=== PATIENT | female | born 1960 | race Caucasian/White ===

== ENCOUNTER 2023-07-15 05:00 | Observation (INO) | payer OTHER ==
[2023-07-15] VITALS (9 sets, daily range): BP systolic 109–173; BP diastolic 47–82; PULSE 67–84; RESP 14–73; TEMP 96.9–98; O2SAT 96–97
[~2023-07-15] VITALS: Ht 154.9 cm; Wt 72.6 kg
[2023-07-15 06:58] LABS: BASOPHILS % (AUTO) 0.6 % (0.0-2.0); EOSINOPHILS % (AUTO) 0.5 % (0.0-4.0); HEMATOCRIT 42.9 % (36-48); HEMOGLOBIN 14.6 g/dL (12.0-16.0); LYMPHOCYTES # (AUTO) 1.5 K/uL (2.5-16.5); LYMPHOCYTES % (AUTO) 18.3 % (20.5-51.1); MEAN CORPUSCULAR HEMOGLOBIN 31 pg (27-31); MEAN CORPUSCULAR HGB CONC 34 g/dL (33-37); MEAN CORPUSCULAR VOLUME 89.6 fL (80-94); MONOCYTES # (AUTO) 0.4 K/uL (0.8-1.0); MONOCYTES % (AUTO) 5.2 % (1.7-9.3); NEUTROPHILS # (AUTO) 6.1 K/uL (1.8-7.7); NEUTROPHILS % (AUTO) 75.4 % (42.2-75.2); PLATELET COUNT (AUTO) 308 K/uL (140-450); RED BLOOD CELL COUNT(AUTO) 4.78 MIL/uL (4.20-5.40); RED CELL DISTRIBUTION WIDTH 13.2 % (11.6-13.7); WHITE BLOOD COUNT (AUTO) 8.1 K/uL (4.8-10.8)
[2023-07-15] MEDS ORDERED: ASPIRIN 81 MG TAB.CHEW PO ONE (07:35)
[2023-07-15 07:53] LABS: ANION GAP 11.3 (8-16); CALCIUM 8.8 mg/dL (8.5-10.1); CARBON DIOXIDE 26.8 mmol/L (21-32); CREATININE 0.6 mg/dL (0.6-1.3); POTASSIUM 4.1 mmol/L (3.5-5.1)
[2023-07-15] MEDS ORDERED: MAG SULF 2000 MG/WATER PREMIX 50 ML IV PRN (08:20)
[2023-07-15] MEDS ORDERED: MAGNESIUM OXIDE 400 MG TAB PO PRN (08:20)
[2023-07-15] MEDS ORDERED: POTASSIUM CHLORIDE 10 MEQ TABER PO PRN (08:20)
[2023-07-15] MEDS ORDERED: KCL 20 MEQ IN 100 mL PREMIX 200 ML IV PRN (08:20)
[2023-07-15] MEDS ORDERED: ACETAMINOPHEN 325 MG TAB PO PRN (08:20)
[2023-07-15] MEDS ORDERED: ONDANSETRON 4 MG/2 ML VIAL IVP PRN (08:20)
[2023-07-15] MEDS ORDERED: MORPHINE SULFATE 2 MG/ML SYR IVP PRN (08:20)
[2023-07-15] MEDS ORDERED: HYDROcodone/APAP 5/325 MG 1 TAB TAB PO PRN (08:20)
[2023-07-15 08:25] LABS: INR 0.98 (0.8-1.2); PARTIAL THROMBOPLASTIN TIME 26.8 secs (22-35.6); PROTHROMBIN TIME 10.3 secs (10.8-13.4)
[2023-07-15 08:27] LABS: ALBUMIN 3.4 g/dL (3.4-5.0); BILIRUBIN,DIRECT 0.1 mg/dL (0.0-0.3); TOTAL BILIRUBIN 0.5 mg/dL (0.0-1.0); TOTAL PROTEIN, SERUM 7.8 g/dL (6.4-8.2)
[2023-07-15] MEDS ORDERED: METF-352 PO (08:48)
[2023-07-15] MEDS ORDERED: INSU100I7 SUBQ (08:48)
[2023-07-15] MEDS ORDERED: BENA10TA81 PO (08:48)
[2023-07-15] MEDS ORDERED: SIMV-30 PO (08:48)
[2023-07-15] MEDS ORDERED: ENAL20TA40 PO (08:48)
[2023-07-15] MEDS ORDERED: GLIP10TA12 PO (08:48)
[2023-07-15] MEDS ORDERED: ENOXAPARIN 40 MG/0.4 ML SYR SUBQ SCH (09:00)
[2023-07-15] MEDS ORDERED: INSULIN LISPRO SLIDING SCALE 100 UNITS/ML VIAL SUBQ PRN (10:35)
[2023-07-15] MEDS ORDERED: DEXTROSE 50% 50 ML SYR IVP PRN (10:35)
[2023-07-15] MEDS ORDERED: BLOOD GLUCOSE MONITORING 1 DEV DEV FS SCH (11:30)
== END 2023-07-15 17:45 | disposition home or self-care (01) ==
LOC: MED 05:00 → MTU 08:22 → MMU 09:39
PROVIDERS: ADMIT Internal Medicine; ATTEND Internal Medicine
DX: E11.649 Type 2 diabetes mellitus with hypoglycemia without coma (principal); I10 Essential (primary) hypertension; E78.5 Hyperlipidemia, unspecified; I21.4 Non-ST elevation (NSTEMI) myocardial infarction; G93.40 Encephalopathy, unspecified; Z90.710 Acquired absence of both cervix and uterus; Z79.899 Other long term (current) drug therapy
CPT/HCPCS: 36415; 71045; 80048; 80076; 82948; 84484; 85025; 85610; 85730; 87081; 93005; 96372; 99285; G0378; J1650; J1815; Q0092

== ENCOUNTER 2023-08-16 13:40 | Emergency (ER) | payer OTHER ==
[~2023-08-16] VITALS: Ht 157.5 cm; Wt 83.6 kg
[~2023-08-16 13:40] MED LIST: BENA10TA81 PO; INSU100I7 SUBQ; METF-352 PO; SIMV-30 PO
[2023-08-16 14:01] VITALS: BP 167/87; PULSE 96; RESP 16; TEMP 99.3; O2SAT 98
[2023-08-16 14:06] VITALS: BP 167/87; PULSE 96; RESP 16; TEMP 99.3; O2SAT 98
[2023-08-16] MEDS: KETOROLAC 30 MG/ML VIAL IM ONE (15:43)
[2023-08-16] MEDS ORDERED: IBUP-2213 PO (16:22)
[2023-08-16] MEDS ORDERED: TRAM-748 PO (16:22)
[2023-08-16] MEDS ORDERED: LID5T TP (16:22)
== END 2023-08-16 16:49 | disposition home or self-care (01) ==
LOC: MED 13:40
DX: S20.212A Contusion of left front wall of thorax, initial encounter (principal); S30.0XXA Contusion of lower back and pelvis, initial encounter; E11.9 Type 2 diabetes mellitus without complications; Z79.4 Long term (current) use of insulin; Z79.899 Other long term (current) drug therapy; W18.30XA Fall on same level, unspecified, initial encounter; Y93.89 Activity, other specified; Y92.89 Other specified places as the place of occurrence of the external cause; Y99.8 Other external cause status
CPT/HCPCS: 71101; 72100; 72220; 96372; 99284; J1885